=== PATIENT | female | born 1945 | race Two or more races ===

== ENCOUNTER 2017-10-22 09:52 | Outpatient (CLI) | payer MEDICARE ==
[~2017-10-22 09:52] MED LIST: CLON0.1T20 PO; LISI10TA4 PO; METF500T4 PO; SITA50TA PO
== END 2017-10-22 23:59 | disposition home or self-care (01) ==
LOC: RAD 09:52
PROVIDERS: ATTEND Internal Medicine Cardiovascular Disease
DX: R55 Syncope and collapse (principal)
CPT/HCPCS: 95816